=== PATIENT | male | born 1990 | race Caucasian/White ===

== ENCOUNTER 2017-03-06 01:15 | Inpatient (IN) | payer SELFPAY ==
[~2017-03-06] VITALS: Ht 167.6 cm; Wt 68.2 kg
[2017-03-06] VITALS (13 sets, daily range): BP systolic 109–141; BP diastolic 46–82
[2017-03-06 01:26] LABS: EOSINOPHIL (%) 1.1 % (0-5); EOSINOPHIL COUNT 0.1 K/uL (0-0.3); HEMATOCRIT 48.8 % (38.0-50.0); IMMATURE GRANULOCYTE (%) 0.6 % (0.0-0.7); IMMATURE GRANULOCYTE COUNT 0.1 K/uL; INSTRUMENT ABS NEUTROPHIL CT 8.4 K/uL; LYMPHOCYTE COUNT 2.4 K/uL (1.0-2.8); MCH 28.8 PG (29.0-34.0); MCHC 33.2 G/DL (30.0-36.0); MCV 86.7 FL (86-99); MEAN PLAT.VOLUME 10.1 uM^3 (9.0-12.4); MONOCYTE (%) 5.8 % (3-12); MONOCYTE COUNT 0.7 K/uL (0-0.8); NEUTROPHIL (%) 71.8 % (45-76); NEUTROPHIL COUNT 8.4 K/uL (1.8-6.4); PLATELET COUNT 275 K/uL (156-360); RBC DIS.WIDTH-CV 13.3 % (11.8-14.6); RBC DIS.WIDTH-SD 42.9 % (39-53); RED BLOOD COUNT 5.63 M/uL (4.00-5.50); WHITE BLOOD COUNT 11.8 K/uL (4.1-10.2)
[2017-03-06 01:38] LABS: AMYLASE 75 IU/L (1-118); CHLORIDE 105 mEq/L (99-109); POTASSIUM 3.2 mEq/L (3.7-5.4); SODIUM 142 mEq/L (136-147)
[2017-03-06 01:40] LABS: GLUCOSE 116 mg/dL (70-99)
[2017-03-06 01:41] LABS: ANION GAP 16 MEQ/L (2-14)
[2017-03-06 01:43] LABS: SERUM ETHYL ALCOHOL 228 mg/dL
[2017-03-06 01:44] LABS: GFR ESTIMATE (CALCULATED) > 59 mL/min/ (58.99-99999); UREA NITROGEN (BUN) 14 mg/dL (9-23)
[2017-03-06 01:47] LABS: LIPASE 25 U/L (1.0-51.0)
[2017-03-06 02:13] LABS: ADD MIUA? YES; BILIRUBIN NEGATIVE; BLOOD MODERATE; COLOR STRAW ((YELLOW)); GLUCOSE (STRIP) NEGATIVE; KETONES NEGATIVE; LEUKOCYTES NEGATIVE; NITRITE NEGATIVE; PROTEIN (STRIP) 100; SPECIFIC GRAVITY 1.009 (1.000-1.030); UROBILINOGEN 0.2 MG/DL (0.2-1.0)
[2017-03-06 02:16] LABS: BACTERIA RARE /HPF; EPITHELIAL CELLS RARE /HPF; MUCUS NONE SEEN /LPF; RED BLOOD CELLS 0-5 /HPF (0-5); UCUL ADDED? NO; WHITE BLOOD CELLS 0-5 /HPF (0-5)
[2017-03-06 02:25] LABS: ADD MEDTOX COMMENT Y; AMPHETAMINE NEGATIVE (500 ng/mL); BARBITURATES NEGATIVE (200 ng/mL); BENZODIAZEPINES NEGATIVE (150 ng/mL); COCAINE NEGATIVE (150 ng/mL); INTERNAL CONTROLS VALID? YES; METHADONE NEGATIVE (200 ng/mL); METHAMPHETAMINE NEGATIVE (500 ng/mL); OPIATES (MORPHINE) NEGATIVE (100 ng/mL); OXYCODONE NEGATIVE (100 ng/mL); PHENCYCLIDINE NEGATIVE (25 ng/mL); PROPOXYPHENE NEGATIVE (300 ng/mL); THC CANNABINOIDS PRESUMPTIVE POSITIVE (50 ng/mL); TRICYCLIC ANTIDEPRESSANTS NEGATIVE (300 ng/mL)
[2017-03-06 02:25] LABS: BASE EXCESS -3.5 mEq/L (-3 to +3); BICARBONATE 21.5 mEq/L (22-26); CARBOXY HGB 2.4 % (0-5); COMMENTS - BLOOD GASES C+; DEVICE VENT; PCO2 38 mm Hg (35-45); PO2 496 mm Hg (80-100); SITE RR; pH 7.36 (7.35-7.45)
[2017-03-06 02:26] LABS: FI02 100 %; MECHANICAL RATE 16 resp/min; MODE A/C; PEEP 5 CM/H20; TIDAL VOLUME 500 ML; TOTAL RESP RATE 16 resp/min
[2017-03-06 07:46] LABS: METH RESISTANT S AUREUS PCR NEGATIVE (NEGATIVE)
[2017-03-06 07:53] LABS: PROBE CHECK PASS; SPECIMEN PROCESSING CONTROL PASS
[2017-03-06 10:29] LABS: AHBS INDEX 303.54; HPCA INDEX 0.39
[2017-03-06 10:30] LABS: HIV INDEX 0.08; HIV-1/2 AB/AG COMBO Nonreactive
[2017-03-06 10:38] LABS: HEPATITIS B SURFACE ANTIBODY REACTIVE
[2017-03-07 06:07] LABS: HEMATOCRIT 38.4 % (38.0-50.0); MCH 29.3 PG (29.0-34.0); MCHC 34.4 G/DL (30.0-36.0); MCV 85.1 FL (86-99); PLATELET COUNT 202 K/uL (156-360); RBC DIS.WIDTH-CV 13.4 % (11.8-14.6); RED BLOOD COUNT 4.51 M/uL (4.00-5.50); WHITE BLOOD COUNT 11.4 K/uL (4.1-10.2)
[2017-03-07 06:33] LABS: ANION GAP 7 MEQ/L (2-14); CHLORIDE 103 MEQ/L (99-109); GFR ESTIMATE (CALCULATED) > 59 mL/min/ (58.99-99999); GLUCOSE 118 mg/dL (70-99); POTASSIUM 3.7 MEQ/L (3.7-5.4); SAMPLE HEMOLYSIS CHECK 0; SAMPLE ICTERIC CHECK 0; SAMPLE LIPEMIA CHECK 0; SODIUM 141 MEQ/L (136-147); UREA NITROGEN (BUN) 10 mg/dL (9-23)
[2017-03-07 09:00] VITALS: BP 125/68
[2017-03-07 11:00] VITALS: BP 116/67
[2017-03-07 18:30] VITALS: BP 135/57
[2017-03-07 20:00] VITALS: BP 132/68
[2017-03-07 20:33] VITALS: BP 133/66
[2017-03-07 22:30] VITALS: BP 133/66
[2017-03-08] VITALS: BP 131/72
[2017-03-08 04:26] VITALS: BP 126/67
[2017-03-08 08:51] VITALS: BP 130/76
[2017-03-08 16:09] VITALS: BP 138/82
[2017-03-09 00:08] VITALS: BP 158/86
[2017-03-09 07:53] VITALS: BP 134/80
[2017-03-09 11:50] LABS: HEMATOCRIT 49.2 % (38.0-50.0); MCH 28.2 PG (29.0-34.0); MCHC 33.5 G/DL (30.0-36.0); MCV 84.1 FL (86-99); MEAN PLAT.VOLUME 10.1 uM^3 (9.0-12.4); PLATELET COUNT 254 K/uL (156-360); RBC DIS.WIDTH-CV 12.7 % (11.8-14.6); RBC DIS.WIDTH-SD 39.4 % (39-53); WHITE BLOOD COUNT 9.6 K/uL (4.1-10.2)
[2017-03-09 11:51] LABS: RED BLOOD COUNT 5.85 M/uL (4.00-5.50)
[2017-03-09 12:11] LABS: ALKALINE PHOSPHATASE 59 IU/L (3-129); ANION GAP 10 MEQ/L (2-14); CHLORIDE 97 MEQ/L (99-109); GFR ESTIMATE (CALCULATED) > 59 mL/min/ (58.99-99999); SAMPLE HEMOLYSIS CHECK 1; SAMPLE ICTERIC CHECK 0; SAMPLE LIPEMIA CHECK 0; SODIUM 138 MEQ/L (136-147); TOTAL BILIRUBIN 0.8 MG/DL (0.0-1.0); UREA NITROGEN (BUN) 14 mg/dL (9-23)
[2017-03-09 12:14] LABS: GLUCOSE 85 mg/dL (70-99)
[2017-03-09 16:07] VITALS: BP 129/75
[2017-03-09 19:49] VITALS: BP 134/86
[2017-03-09 23:45] VITALS: BP 133/86
[2017-03-10 03:43] VITALS: BP 136/67
[2017-03-10 08:17] VITALS: BP 129/74
[2017-03-10 11:48] VITALS: BP 129/69
[2017-03-10 15:47] VITALS: BP 143/88
[2017-03-10 20:24] VITALS: BP 131/70
[2017-03-11 00:15] VITALS: BP 138/82
[2017-03-11 04:17] VITALS: BP 135/77
[2017-03-11 07:52] VITALS: BP 118/59
[2017-03-11 11:09] VITALS: BP 148/79
[2017-03-11 15:13] VITALS: BP 132/66
== END 2017-03-11 21:20 | disposition home or self-care (01) | DRG 208 ==
LOC: TRA 01:15 → EDOF 04:54 → 3EAST 04:54 → 4WEST 04:54 → 3EAST 04:54 → ENRESERV 04:55 → 4WEST 05:26 → ENRESERV 03-07 16:40 → 3EAST 03-07 20:23
PROVIDERS: Emergency Medicine; Internal Medicine Critical Care Medicine; Surgery
DX: S27.0XXA Traumatic pneumothorax, initial encounter (principal); J96.00 Acute respiratory failure, unspecified whether with hypoxia or hypercapnia; J98.11 Atelectasis; S22.32XA Fracture of one rib, left side, initial encounter for closed fracture; S01.81XA Laceration without foreign body of other part of head, initial encounter; F17.200 Nicotine dependence, unspecified, uncomplicated; F32.9 Major depressive disorder, single episode, unspecified; F10.129 Alcohol abuse with intoxication, unspecified; F12.10 Cannabis abuse, uncomplicated; V03.10XA Pedestrian on foot injured in collision with car, pick-up truck or van in traffic accident, initial encounter
CPT/HCPCS: 36600; 70450; 70486; 71010; 71020; 71260; 72125; 72129; 72132; 74177; 80048; 80053; 81003; 82150; 82803; 83690; 84999; 85025; 85027; 86703; 86706; 86803; 86850; 86900; 86901; 87070; 87205; 87641; 90686; 94002; 94003; 99281; 99285; G0480; J1170; J1650; J2060; J2250; J2704; J3010; J7050

== ENCOUNTER → 2017-03-12 | Outpatient (CLI) | payer SELFPAY | END | disposition home or self-care (01) | LOC: RAD 12:07 | DX: J93.9 Pneumothorax, unspecified (principal) | CPT/HCPCS: 71020 ==

== ENCOUNTER → 2017-03-15 | Outpatient (CLI) | payer SELFPAY | END | disposition home or self-care (01) | LOC: RAD 13:12 | DX: J93.9 Pneumothorax, unspecified (principal) | CPT/HCPCS: 71020 ==

== ENCOUNTER → 2017-03-18 | Outpatient (CLI) | payer SELFPAY | END | disposition home or self-care (01) | LOC: RAD 12:39 | DX: J93.9 Pneumothorax, unspecified (principal) | CPT/HCPCS: 71020 ==

== ENCOUNTER → 2017-03-22 | Outpatient (CLI) | payer SELFPAY | END | disposition home or self-care (01) | LOC: RAD 12:07 | DX: J93.9 Pneumothorax, unspecified (principal) | CPT/HCPCS: 71046 ==

== ENCOUNTER → 2017-03-28 | Outpatient (CLI) | payer OTHER | END | disposition home or self-care (01) | LOC: RAD 12:14 | DX: J93.9 Pneumothorax, unspecified (principal) | CPT/HCPCS: 71046 ==